=== PATIENT | female | born 1965 | race Caucasian/White ===

== ENCOUNTER 2018-05-11 10:10 | Inpatient (IN) | payer MEDICAID ==
[~2018-05-11] VITALS: Ht 182.9 cm; Wt 92.7 kg
[~2018-05-11 10:10] MED LIST: AMLO10TA PO; DIO160T PO
[2018-05-11 11:15] LABS: BASOPHILS # (AUTO) 0.1 X10'3 (0-0.2); BASOPHILS % (AUTO) 1.2 % (0-1); EOSINOPHILS # (AUTO) 0.1 X10'3 (0-0.9); EOSINOPHILS % (AUTO) 1.6 % (0-6); HEMATOCRIT 43.4 % (35.0-45.0); HEMOGLOBIN 14.8 g/dl (12.0-16.0); LYMPHOCYTES # (AUTO) 1.3 X10'3 (1.1-4.8); LYMPHOCYTES % (AUTO) 26.1 % (21-51); MEAN CORPUSCULAR HEMOGLOBIN 29.6 PG (27.0-31.0); MEAN PLATELET VOLUME 8.3 FL (7.4-10.4); MONOCYTES # (AUTO) 0.3 X10'3 (0-0.9); MONOCYTES % (AUTO) 6.8 % (2-12); NEUTROPHILS # (AUTO) 3.3 X10'3 (1.8-7.7); NEUTROPHILS % (AUTO) 64.3 % (42-75); PLATELET COUNT 188 X10'3 (140-440); RED BLOOD COUNT 4.98 X10'6 (4.20-5.60); RED CELL DISTRIBUTION WIDTH 13.3 % (11.5-14.5); WHITE BLOOD COUNT 5.1 X10'3 (4.5-11.0)
[2018-05-11 11:29] LABS: ALANINE AMINOTRANSFERASE 37 U/L (12-78); ALBUMIN 3.8 G/DL (3.4-5.0); ALKALINE PHOSPHATASE 93 IU/L (46-116); ANION GAP 4 (8-16); ASPARTATE AMINO TRANSFERASE 20 U/L (10-37); BILIRUBIN,TOTAL 1.2 MG/DL (0.1-1.0); BLOOD UREA NITROGEN 20 MG/DL (7-18); BUN/CREATININE RATIO 21.1 (6.6-38.0); CALCIUM 8.9 MG/DL (8.5-10.1); CHLORIDE 104 MMOL/L (99-107); CREATININE 0.95 MG/DL (0.40-0.90); GLUCOSE 204 MG/DL (70-104); POTASSIUM 4.2 MMOL/L (3.5-5.1); SODIUM 141 MMOL/L (135-145); TOTAL CARBON DIOXIDE 32.7 MMOL/L (24-32); TOTAL PROTEIN 7.5 G/DL (6.4-8.2); eGFR 62 ML/MIN
[2018-05-11 11:38] LABS: PARTIAL THROMBOPLASTIN TIME 26 SECONDS (22-32); PROTHROMBIN TIME 10.2 SECONDS (9.0-12.0)
[2018-05-11] MEDS ORDERED: labetalol inj. 200 MG in normal saline 250ml IV soln 210 ML IV ONE (12:05)
[2018-05-11] MEDS ORDERED: hydrALAZINE 20mg/ml inj. IV ONE (12:05)
[2018-05-11] MEDS ORDERED: niCARDipine/sod cl 20mg/200ml 200 ML IV ONE (12:50)
[2018-05-11] MEDS ORDERED: aspirin 325mg tablet PO ONE (13:15)
[2018-05-11] MEDS ORDERED: INSU100I31 SUBCUT (13:44)
[2018-05-11] MEDS ORDERED: VALS320T16 PO (13:44)
[2018-05-11] MEDS ORDERED: LEVO150T8 PO (13:44)
[2018-05-11] MEDS ORDERED: potassium Cl 20 mEq SR tablet PO PRN ×2 (14:10)
[2018-05-11] MEDS ORDERED: dextrose 50%-water 50ml dispensing syringe IV PRN ×2 (14:10)
[2018-05-11] MEDS ORDERED: magnesium hydroxide 30ml (MOM) UD suspension PO PRN (14:10)
[2018-05-11] MEDS ORDERED: potassium Cl 40MEQ/NS 500ml 500 ML IV PRN ×2 (14:10)
[2018-05-11] MEDS ORDERED: MESSAGE TO PHARMACY PO ONE (14:10)
[2018-05-11] MEDS ORDERED: magnesium 4gm in 100ml NS 100 ML IV PRN (14:10)
[2018-05-11] MEDS ORDERED: magnesium 1gm/100ml D5W IVPB 50 ML IV PRN (14:10)
[2018-05-11] MEDS ORDERED: ondansetron/PF 4mg/2ml inj IV PRN (14:10)
[2018-05-11] MEDS ORDERED: glucagon, human recombinant 1mg kit SUBCUT PRN (14:10)
[2018-05-11] MEDS ORDERED: acetaminophen 325mg tablet PO PRN (14:10)
[2018-05-11] MEDS ORDERED: mag hydrox/Alum hydrox/simeth 30ml oral suspension PO PRN (14:10)
[2018-05-11] MEDS ORDERED: dextrose ORAL solution 15 GM/59 ML bottle PO PRN ×2 (14:10)
[2018-05-11 14:35] LABS: HEMOGLOBIN A1C 8.5 % (4.5-6.2)
[2018-05-11 15:00] VITALS: BP 196/96
[2018-05-11 16:00] VITALS: BP 175/89
[2018-05-11 17:00] VITALS: BP 149/92
[2018-05-11] MEDS: heparin, porcine 5000 units/ml vial SQ SCH (17:03)
[2018-05-11 18:00] VITALS: BP 169/86
[2018-05-11] MEDS: hydrALAZINE 20mg/ml inj. IV SCH ×2 (18:20→21:44)
[2018-05-11 20:00] VITALS: BP_SYST 118; BP_SYST 148; BP_SYST 150; BP_DIAS 62; BP_DIAS 67; BP_DIAS 70
[2018-05-11] MEDS: insulin glargine (Lantus) pen - multi-dose SQ SCH (21:00)
[2018-05-11 22:00] VITALS: BP 141/57
[2018-05-12] VITALS (7 sets, daily range): BP systolic 133–178; BP diastolic 63–91
[2018-05-12] MEDS: heparin, porcine 5000 units/ml vial SQ SCH ×3 (00:56→16:06)
[2018-05-12] MEDS: hydrALAZINE 20mg/ml inj. IV SCH ×2 (02:55→07:58)
[2018-05-12 06:53] LABS: ALANINE AMINOTRANSFERASE 31 U/L (12-78); ALBUMIN 3.4 G/DL (3.4-5.0); ALBUMIN/GLOBULIN RATIO 1.1 (1.1-1.5); ALKALINE PHOSPHATASE 82 IU/L (46-116); ANION GAP 10 (8-16); ASPARTATE AMINO TRANSFERASE 14 U/L (10-37); BILIRUBIN,TOTAL 1.4 MG/DL (0.1-1.0); BLOOD UREA NITROGEN 22 MG/DL (7-18); BUN/CREATININE RATIO 21.6 (6.6-38.0); CALCIUM 8.7 MG/DL (8.5-10.1); CHLORIDE 103 MMOL/L (99-107); CHOL/HDL RATIO 2.3 (0.00-4.99); CHOLESTEROL 195 MG/DL (0-200); CREATININE 1.02 MG/DL (0.40-0.90); GLUCOSE 251 MG/DL (70-104); HDL CHOLESTEROL 83 MG/DL (35-60); LDL CHOLESTEROL 106 MG/DL (50-100); MAGNESIUM 1.8 MG/DL (1.5-2.4); POTASSIUM 3.7 MMOL/L (3.5-5.1); SODIUM 139 MMOL/L (135-145); TOTAL CARBON DIOXIDE 26.4 MMOL/L (24-32); TOTAL PROTEIN 6.6 G/DL (6.4-8.2); TRIGLYCERIDES 46 MG/DL (20-135); eGFR 57 ML/MIN
[2018-05-12 07:12] LABS: HEMATOCRIT 40.9 % (35.0-45.0); HEMOGLOBIN 13.7 g/dl (12.0-16.0); MEAN CORPUSCULAR HEMOGLOBIN 29.1 PG (27.0-31.0); MEAN CORPUSCULAR HGB CONC 33.5 % (33.0-36.5); MEAN CORPUSCULAR VOLUME 86.8 FL (78-98); MEAN PLATELET VOLUME 8.9 FL (7.4-10.4); PLATELET COUNT 181 X10'3 (140-440); RED BLOOD COUNT 4.71 X10'6 (4.20-5.60); RED CELL DISTRIBUTION WIDTH 13.2 % (11.5-14.5); WHITE BLOOD COUNT 6.1 X10'3 (4.5-11.0)
[2018-05-12 07:13] LABS: BASOPHILS # (AUTO) 0.1 X10'3 (0-0.2); BASOPHILS % (AUTO) 1.1 % (0-1); EOSINOPHILS # (AUTO) 0.1 X10'3 (0-0.9); EOSINOPHILS % (AUTO) 1.1 % (0-6); LYMPHOCYTES # (AUTO) 1.3 X10'3 (1.1-4.8); LYMPHOCYTES % (AUTO) 20.7 % (21-51); MONOCYTES # (AUTO) 0.3 X10'3 (0-0.9); MONOCYTES % (AUTO) 4.4 % (2-12); NEUTROPHILS # (AUTO) 4.5 X10'3 (1.8-7.7); NEUTROPHILS % (AUTO) 72.7 % (42-75)
[2018-05-12] MEDS: valsartan 80mg tablet PO SCH (07:43)
[2018-05-12] MEDS: levoTHYROXINE 75mcg tablet PO SCH (07:44)
[2018-05-12] MEDS: insulin Lispro (HumaLOG) vial - multi-dose SQ SCH ×3 (07:54→20:11)
[2018-05-12] MEDS: K and/or MAG REPLACEMENT MC SCH (08:00)
[2018-05-12] MEDS ORDERED: spironolactone 25 MG tablet PO SCH (13:40)
[2018-05-12] MEDS: hyDRALAzine 10mg tablet PO SCH ×3 (14:32→20:19)
[2018-05-12] MEDS: insulin glargine (Lantus) pen - multi-dose SQ SCH (21:00)
[2018-05-12] MEDS: spironolactone 25 MG tablet PO PRN (23:07)
[2018-05-13] VITALS (11 sets, daily range): BP systolic 110–189; BP diastolic 66–100
[2018-05-13] MEDS: heparin, porcine 5000 units/ml vial SQ SCH ×3 (00:17→16:40)
[2018-05-13 05:59] LABS: BASOPHILS # (AUTO) 0.1 X10'3 (0-0.2); BASOPHILS % (AUTO) 2.1 % (0-1); EOSINOPHILS # (AUTO) 0.1 X10'3 (0-0.9); HEMATOCRIT 40.9 % (35.0-45.0); HEMOGLOBIN 13.4 g/dl (12.0-16.0); LYMPHOCYTES # (AUTO) 2.2 X10'3 (1.1-4.8); MEAN CORPUSCULAR HEMOGLOBIN 28.8 PG (27.0-31.0); MEAN CORPUSCULAR HGB CONC 32.8 % (33.0-36.5); MEAN CORPUSCULAR VOLUME 87.7 FL (78-98); MEAN PLATELET VOLUME 8.6 FL (7.4-10.4); MONOCYTES # (AUTO) 0.4 X10'3 (0-0.9); MONOCYTES % (AUTO) 7.8 % (2-12); NEUTROPHILS # (AUTO) 2.3 X10'3 (1.8-7.7); NEUTROPHILS % (AUTO) 45.1 % (42-75); PLATELET COUNT 156 X10'3 (140-440); RED BLOOD COUNT 4.66 X10'6 (4.20-5.60); RED CELL DISTRIBUTION WIDTH 13.4 % (11.5-14.5); WHITE BLOOD COUNT 5.1 X10'3 (4.5-11.0)
[2018-05-13 06:37] LABS: ALANINE AMINOTRANSFERASE 24 U/L (12-78); ALBUMIN 3.2 G/DL (3.4-5.0); ALKALINE PHOSPHATASE 79 IU/L (46-116); ANION GAP 10 (8-16); ASPARTATE AMINO TRANSFERASE 13 U/L (10-37); BILIRUBIN,TOTAL 1.7 MG/DL (0.1-1.0); BLOOD UREA NITROGEN 25 MG/DL (7-18); BUN/CREATININE RATIO 23.4 (6.6-38.0); CALCIUM 8.5 MG/DL (8.5-10.1); CHLORIDE 101 MMOL/L (99-107); CREATININE 1.07 MG/DL (0.40-0.90); GLUCOSE 401 MG/DL (70-104); MAGNESIUM 1.8 MG/DL (1.5-2.4); POTASSIUM 4.2 MMOL/L (3.5-5.1); SODIUM 137 MMOL/L (135-145); TOTAL CARBON DIOXIDE 25.6 MMOL/L (24-32); TOTAL PROTEIN 6.3 G/DL (6.4-8.2); eGFR 54 ML/MIN
[2018-05-13] MEDS: levoTHYROXINE 75mcg tablet PO SCH (07:19)
[2018-05-13] MEDS: valsartan 80mg tablet PO SCH (07:19)
[2018-05-13] MEDS: hyDRALAzine 10mg tablet PO SCH (07:19)
[2018-05-13] MEDS: K and/or MAG REPLACEMENT MC SCH (08:00)
[2018-05-13] MEDS: insulin Lispro (HumaLOG) vial - multi-dose SQ SCH ×3 (08:19→21:35)
[2018-05-13] MEDS: spironolactone 25 MG tablet PO PRN (08:22)
[2018-05-13] MEDS: cloNIDine 0.1 mg tablet PO SCH ×3 (13:02→21:00)
[2018-05-13] MEDS ORDERED: hyDRALAzine 10mg tablet PO SCH (14:00)
[2018-05-14] MEDS: heparin, porcine 5000 units/ml vial SQ SCH ×2 (00:45→07:06)
[2018-05-14 03:00] VITALS: BP 124/60
[2018-05-14] MEDS ORDERED: normal saline 1000ml 1,000 ML IVB ONE (03:26)
[2018-05-14] MEDS ORDERED: insulin regular, human 10 units/0.1 ml syringe IV ONE (03:28)
[2018-05-14 05:36] LABS: BASOPHILS # (AUTO) 0.1 X10'3 (0-0.2); BASOPHILS % (AUTO) 1.5 % (0-1); EOSINOPHILS # (AUTO) 0.1 X10'3 (0-0.9); EOSINOPHILS % (AUTO) 1.3 % (0-6); HEMATOCRIT 39.3 % (35.0-45.0); LYMPHOCYTES # (AUTO) 1.7 X10'3 (1.1-4.8); MEAN CORPUSCULAR HEMOGLOBIN 28.8 PG (27.0-31.0); MEAN CORPUSCULAR HGB CONC 33.2 % (33.0-36.5); MEAN CORPUSCULAR VOLUME 86.8 FL (78-98); MEAN PLATELET VOLUME 8.8 FL (7.4-10.4); MONOCYTES # (AUTO) 0.4 X10'3 (0-0.9); NEUTROPHILS # (AUTO) 4.7 X10'3 (1.8-7.7); NEUTROPHILS % (AUTO) 67.2 % (42-75); PLATELET COUNT 152 X10'3 (140-440); RED BLOOD COUNT 4.52 X10'6 (4.20-5.60); RED CELL DISTRIBUTION WIDTH 13.5 % (11.5-14.5); WHITE BLOOD COUNT 6.9 X10'3 (4.5-11.0)
[2018-05-14 06:30] VITALS: BP 159/75
[2018-05-14 06:32] LABS: ALANINE AMINOTRANSFERASE 27 U/L (12-78); ALKALINE PHOSPHATASE 78 IU/L (46-116); ANION GAP 12 (8-16); ASPARTATE AMINO TRANSFERASE 11 U/L (10-37); BILIRUBIN,TOTAL 1.7 MG/DL (0.1-1.0); BLOOD UREA NITROGEN 26 MG/DL (7-18); CHLORIDE 102 MMOL/L (99-107); CREATININE 1.13 MG/DL (0.40-0.90); GLUCOSE 383 MG/DL (70-104); MAGNESIUM 1.6 MG/DL (1.5-2.4); POTASSIUM 3.8 MMOL/L (3.5-5.1); SODIUM 137 MMOL/L (135-145); TOTAL CARBON DIOXIDE 23.3 MMOL/L (24-32); eGFR 51 ML/MIN
[2018-05-14 06:52] VITALS: BP 159/75
[2018-05-14] MEDS: valsartan 80mg tablet PO SCH (07:05)
[2018-05-14] MEDS: levoTHYROXINE 75mcg tablet PO SCH (07:05)
[2018-05-14] MEDS: cloNIDine 0.1 mg tablet PO SCH ×2 (07:05→13:00)
[2018-05-14] MEDS: K and/or MAG REPLACEMENT MC SCH (07:12)
[2018-05-14] MEDS ORDERED: insulin glargine (Lantus) pen - multi-dose SQ SCH ×2 (08:00)
[2018-05-14] MEDS: insulin Lispro (HumaLOG) vial - multi-dose SQ SCH ×2 (09:23→14:19)
[2018-05-14 11:00] VITALS: BP_SYST 113; BP_SYST 126; BP_SYST 95; BP_DIAS 58; BP_DIAS 62; BP_DIAS 70
[2018-05-14] MEDS ORDERED: CLON0.1T20 PO (15:17)
== END 2018-05-14 16:30 | disposition home or self-care (01) | DRG 199 ==
LOC: ER 10:11 → ED HOLD 14:09 → EDBEDREQ 14:30 → PCU 3S 15:00
PROVIDERS: ADMIT Family Medicine; ATTEND Family Medicine
DX: I16.1 Hypertensive emergency (principal); I24.8 Other forms of acute ischemic heart disease; I11.9 Hypertensive heart disease without heart failure; E10.649 Type 1 diabetes mellitus with hypoglycemia without coma; R47.01 Aphasia; E03.9 Hypothyroidism, unspecified; R74.8 Abnormal levels of other serum enzymes; Z79.4 Long term (current) use of insulin; Z80.6 Family history of leukemia; Z82.49 Family history of ischemic heart disease and other diseases of the circulatory system; Z83.3 Family history of diabetes mellitus; Z87.891 Personal history of nicotine dependence; Z88.8 Allergy status to other drugs, medicaments and biological substances; Z84.1 Family history of disorders of kidney and ureter
CPT/HCPCS: 36415; 70450; 70544; 70547; 70551; 80053; 80061; 82948; 83036; 83735; 84443; 84484; 85025; 85610; 85730; 87070; 93005; 93306; 96365; 97116; 99285; J0360; J1644; J1815; J3490; J7030